=== PATIENT | male | born 2000 | race American Indian/Alaskan Native ===

== ENCOUNTER 2020-05-22 14:55 | Emergency (ER) | payer MEDICAID ==
[2020-05-22 15:12] VITALS: BP 141/95
[2020-05-22] MEDS ORDERED: IPRATROPIUM 0.02% NEBU 2.5 ML IH ONE (15:42)
[2020-05-22] MEDS ORDERED: ALBUTEROL 2.5 MG/3 ML NEBU IH ONE (15:42)
[2020-05-22] MEDS ORDERED: dexAMETHasone 20 MG/5 ML VIAL IV ONE (15:42)
--- NOTE | 2020-05-22 15:42 | Emergency Department Report ---
- General Chief Complaint: Dyspnea/Respdistress Stated Complaint: BREATHING ISSUES Time Seen by Provider: 05/22/20 15:41 Source: patient Mode of arrival: Ambulatory Limitations: No Limitations - History of Present Illness Initial Comments: Patient is a 19-year-old male who presents emergency room with complaints of a cough that began a few weeks ago. He denies any mucus production. He states he has associated chest tightness, shortness of breath, wheezing. He denies any fever, vomiting, diarrhea, sore throat, ear pain. He denies any known sick contacts or recent travel. Has a past medical history of ADHD, bipolar, anxiety, asthma. He states that he usually uses an albuterol inhaler but states that he ran out. He denies any allergies to medications. He is a current smoker. - Related Data Previous Rx's Medication Instructions Recorded Last Taken Type Albuterol Sulfate [Proventil Hfa] 6.7 gm IH TID PRN #1 hfa.aer.ad 05/22/20 Unknown Rx Prednisone [predniSONE 10 mg 10 mg PO .TAPER #1 tab.ds.pk 05/22/20 Unknown Rx (6-Day Pack, 21 Tabs)] Allergies Allergy/AdvReac Type Severity Reaction Status Date / Time pollen extracts Allergy Unknown Verified 05/22/20 15:13 ED Review of Systems ROS: Stated complaint: BREATHING ISSUES Other details as noted in HPI Comment: All other systems reviewed and negative ED Past Medical Hx - Past Medical History Previous Medical History?: Yes Hx Psychiatric Treatment: Yes Hx Asthma: Yes - Surgical History Past Surgical History?: No - Medications Home Medications: Home Medications Medication Instructions Recorded Confirmed Last Taken Type Albuterol Sulfate [Proventil Hfa] 6.7 gm IH TID PRN #1 hfa.aer.ad 05/22/20 Unknown Rx Prednisone [predniSONE 10 mg 10 mg PO .TAPER #1 tab.ds.pk 05/22/20 Unknown Rx (6-Day Pack, 21 Tabs)] ED Physical Exam - General Limitations: No Limitations General appearance: alert, in no apparent distress - Head Head exam: Present: atraumatic, normocephalic - Eye Eye exam: Present: normal appearance - ENT ENT exam: Present: mucous membranes moist - Respiratory Respiratory exam: Present: wheezes (bilateral expiratory ). Absent: respiratory distress, rales, rhonchi, stridor, chest wall tenderness, accessory muscle use, decreased breath sounds, prolonged expiratory - Cardiovascular Cardiovascular Exam: Present: regular rate, normal rhythm, normal heart sounds. Absent: systolic murmur, diastolic murmur, rubs, gallop - Neurological Exam Neurological exam: Present: alert, oriented X3 - Psychiatric Psychiatric exam: Present: normal affect, normal mood - Skin Skin exam: Present: warm, dry, intact ED Course Vital Signs 05/22/20 05/22/20 05/22/20 15:10 16:25 18:17 Temperature 98.9 F Pulse Rate 94 H 86 Pulse Rate [ 80 Throughout] Respiratory 20 18 Rate Respiratory 16 Rate [ Throughout] Blood Pressure 141/95 [Right] O2 Sat by Pulse 96 100 Oximetry ED Medical Decision Making - Lab Data Vital Signs 05/22/20 05/22/20 05/22/20 15:10 16:25 18:17 Temperature 98.9 F Pulse Rate 94 H 86 Pulse Rate [ 80 Throughout] Respiratory 20 18 Rate Respiratory 16 Rate [ Throughout] Blood Pressure 141/95 [Right] O2 Sat by Pulse 96 100 Oximetry - Radiology Data Radiology results: report reviewed Ordering Physician: CHARISSA TOTH Date of Service: 05/22/20 Procedure(s): XR chest routine 2V Accession Number(s): [id number] cc: CHARISSA TOTH Fluoro Time In Minutes: CHEST 2 VIEWS INDICATION / CLINICAL INFORMATION: cough, wheezing. COMPARISON: None available. FINDINGS: SUPPORT DEVICES: None. HEART / MEDIASTINUM: No significant abnormality. LUNGS / PLEURA: No significant pulmonary or pleural abnormality. No pneumothorax. ADDITIONAL FINDINGS: No significant additional findings. IMPRESSION: 1. No acute findings. Signer Name: Jasson Can MD Signed: 05/22/2020 5:14 PM Workstation Name: [id number] Transcribed By: ASHLEIGH Dictated By: Jasson Can MD Electronically Authenticated By: Jasson Can MD Signed Date/Time: 05/22/201713 DD/ 13 TD/TT: - Medical Decision Making Patient is a 19-year-old male who presents emergency room with complaints of a cough that began a few weeks ago. He denies any mucus production. He states he has associated chest tightness, shortness of breath, wheezing. He denies any fever, vomiting, diarrhea, sore throat, ear pain. He denies any known sick contacts or recent travel. Has a past medical history of ADHD, bipolar, anxiety, asthma. He states that he usually uses an albuterol inhaler but states that he ran out. He denies any allergies to medications. He is a current smoker. VSS. on exam: Bilateral expiratory wheezing, no respiratory distress, no accessory muscle use. CXR: 1. No acute findings. Patient given steroids IM and neb treatment and on reexamination wheezing has significantly improved and he is feeling much better and ready to go home. Patient given prescription for albuterol inhaler and prednisone. Advised patient Please take medication as prescribed. Follow-up with primary care doctor. Return to emergency room for new or worsening symptoms. Critical care attestation.: If time is entered above; I have spent that time in minutes in the direct care of this critically ill patient, excluding procedure time. ED Disposition Clinical Impression: Tobacco use Asthma exacerbation Qualifiers: Asthma severity: unspecified severity Asthma persistence: unspecified Qualified Code(s): J45.901 - Unspecified asthma with (acute) exacerbation Disposition: TO HOME OR SELFCARE Is pt being admited?: No Does the pt Need Aspirin: No Condition: Stable Instructions: Asthma, Adult, Steps to Quit Smoking Additional Instructions: Please take medication as prescribed. Follow-up with primary care doctor. Return to emergency room for new or worsening symptoms. Prescriptions: Prednisone [predniSONE 10 mg (6-Day Pack, 21 Tabs)] 10 mg PO .TAPER #1 tab.ds.pk Albuterol Sulfate [Proventil Hfa] 6.7 gm IH TID PRN #1 hfa.aer.ad PRN Reason: Wheezing Referrals: DEJAH MARROQUIN MD [Primary Care Provider] - 2-3 Days KERRI PARRA MD [Staff Physician] - 2-3 Days [facility] [Provider Group] - 2-3 Days Time of Disposition: 17:57 Print Language: PERSIAN
--- NOTE | 2020-05-22 17:19 | XRay Report ---
CHEST 2 VIEWS INDICATION / CLINICAL INFORMATION: cough, wheezing. COMPARISON: None available. FINDINGS: SUPPORT DEVICES: None. HEART / MEDIASTINUM: No significant abnormality. LUNGS / PLEURA: No significant pulmonary or pleural abnormality. No pneumothorax. ADDITIONAL FINDINGS: No significant additional findings. IMPRESSION: 1. No acute findings. Signer Name: Jasson Can MD Signed: 05/22/2020 5:14 PM Workstation Name: [id number]
== END 2020-05-22 18:17 | disposition home or self-care (01) ==
LOC: ED 14:55
DX: J45.901 Unspecified asthma with (acute) exacerbation (principal); Z72.0 Tobacco use; Z79.899 Other long term (current) drug therapy; Z88.8 Allergy status to other drugs, medicaments and biological substances
CPT/HCPCS: 71046; 94640; 96374; 99283; J1100; 94644

== ENCOUNTER 2020-12-25 11:18 | Emergency (ER) | payer MEDICAID ==
[2020-12-25 12:10] VITALS: BP 131/87
== END 2020-12-27 08:00 ==
LOC: ED 11:18
DX: J45.909 Unspecified asthma, uncomplicated (principal); Z53.21 Procedure and treatment not carried out due to patient leaving prior to being seen by health care provider

== ENCOUNTER 2021-03-21 10:42 | Emergency (ER) | payer MEDICAID ==
[2021-03-21] MEDS ORDERED: ALBUTEROL 2.5 MG/3 ML NEBU IH ONE (10:57)
[2021-03-21] MEDS ORDERED: IPRATROPIUM 0.02% NEBU 2.5 ML IH ONE (10:57)
[2021-03-21] MEDS ORDERED: predniSONE 20 MG TAB PO ONE (10:58)
[2021-03-21 11:00] VITALS: BP 125/83
--- NOTE | 2021-03-21 11:03 | Emergency Department Report ---
HPI - General Time Seen by Provider: 03/21/21 10:49 - HPI HPI: MSE 5 The patient is a 20-year-old male present with chief complaint of asthma exacerbation. The patient states he has had chest congestion and a cough for the past 3 weeks. The patient states for the past 3 weeks he is also had an exacerbation of his asthma with wheezing. Patient states he had a cough productive of clear sputum. Patient denies history of fever. Patient states he received a Covid vaccination but is unable to name which brand or how many shots he received. ED Past Medical Hx - Past Medical History Hx Psychiatric Treatment: Yes (ADHD, anxiety, depression) Hx Asthma: Yes - Surgical History Additional Surgical History: Left upper extremity surgery - Family History Family history: no significant - Social History Smoking Status: Current Every Day Smoker (2/3 pack/day) Substance Use Type: Marijuana - Medications Home Medications: Home Medications Medication Instructions Recorded Confirmed Last Taken Type Albuterol Sulfate [Proventil Hfa] 6.7 gm IH TID PRN #1 hfa.aer.ad 05/22/20 Unknown Rx Prednisone [predniSONE 10 mg 10 mg PO .TAPER #1 tab.ds.pk 05/22/20 Unknown Rx (6-Day Pack, 21 Tabs)] Albuterol Mdi (or & Nicu Only) 2 puff IH QID PRN #8.5 gram 03/21/21 Unknown Rx [ProAir HFA Inhaler] Amoxicillin/Potassium Clav 1 each PO BID #20 tablet 03/21/21 Unknown Rx [Augmentin 875-125 Tablet] Benzonatate [Tessalon Perles] 100 mg PO Q8HR #30 capsule 03/21/21 Unknown Rx Prednisone [predniSONE 10 mg 10 mg PO .TAPER #1 tab.ds.pk 03/21/21 Unknown Rx (6-Day Pack, 21 Tabs)] ED Review of Systems ROS: Stated complaint: ASTHMA Other details as noted in HPI Constitutional: denies: fever Eyes: denies: eye pain ENT: denies: throat pain Respiratory: cough, shortness of breath, wheezing Cardiovascular: denies: chest pain Endocrine: no symptoms reported Gastrointestinal: denies: abdominal pain Genitourinary: denies: dysuria Musculoskeletal: denies: back pain Neurological: denies: headache Physical Exam - Physical Exam Physical Exam: GENERAL: The patient is well-developed well-nourished male sitting on stretcher not appearing to be in acute distress. [] HEENT: Normocephalic. Atraumatic. Extraocular motions are intact. Patient has moist mucous membranes. NECK: Supple. Trachea midline CHEST/LUNGS: Wheezing anteriorly. There is no respiratory distress noted. HEART/CARDIOVASCULAR: Regular. There is no tachycardia. There is no gallop rub or murmur. ABDOMEN: Abdomen is soft, nontender. Patient has normal bowel sounds. There is no abdominal distention. SKIN: There is no rash. There is no edema. There is no diaphoresis. NEURO: The patient is awake, alert, and oriented. The patient is cooperative. The patient has no focal neurologic deficits. The patient has normal speech MUSCULOSKELETAL: There is no evidence of acute injury. ED Medical Decision Making - Lab Data Result diagrams: 03/21/21 12:41 03/21/21 12:41 Lab Results 03/21/21 03/21/21 Range/Units 12:41 12:41 WBC 4.9 (4.5-11.0) K/mm3 RBC 6.61 H (3.65-5.03) M/mm3 Hgb 14.7 (11.8-15.2) gm/dl Hct 47.5 H (35.5-45.6) % MCV 72 L (84-94) fl MCH 22 L (28-32) pg MCHC 31 L (32-34) % RDW 14.2 (13.2-15.2) % Plt Count 167 (140-440) K/mm3 Seg Neutrophils % Mailing Machine Assistant Sodium 137 (137-145) mmol/L Potassium 4.2 (3.6-5.0) mmol/L Chloride 102.4 (98-107) mmol/L Carbon Dioxide 25 (22-30) mmol/L Anion Gap 14 mmol/L BUN 8 L (9-20) mg/dL Creatinine 0.8 (0.8-1.3) mg/dL Estimated GFR > 60 ml/min BUN/Creatinine Ratio 10 % Glucose 100 (75-100) mg/dL Calcium 9.5 (8.4-10.2) mg/dL - Radiology Data Radiology results: report reviewed (Chest x-ray), image reviewed (Chest x-ray) interpreted by me: Chest x-ray-no definite focal infiltrates appreciated, no pneumothorax [facility] [address] [place] [address] XRay Report Signed Patient: MATT HINTON MR#: [id number] : 2000 Acct:[id number] Age/Sex: 20 / M ADM Date: 03/21/21 Loc: ED Attending Dr: Ordering Physician: LAUREL MEDLEY MD Date of Service: 03/21/21 Procedure(s): XR chest routine 2V Accession Number(s): [id number] cc: LAUREL MEDLEY MD Fluoro Time In Minutes: CHEST 2 VIEWS INDICATION / CLINICAL INFORMATION: Shortness of breath, cough. COMPARISON: 05/22/2020 FINDINGS: SUPPORT DEVICES: None. HEART / MEDIASTINUM: No significant abnormality. LUNGS / PLEURA: Subtle patchy opacity in the left midlung zone. No pneumothorax. ADDITIONAL FINDINGS: No significant additional findings. IMPRESSION: 1. Subtle patchy opacity in the left midlung zone concerning for pneumonia. Recommend clinical correlation. Signer Name: Socrates Howell MD Signed: 03/21/2021 11:13 AM Workstation Name: [id number] Transcribed By: DB Dictated By: SOCRATES HOWELL MD Electronically Authenticated By: SOCRATES HOWELL MD Signed Date/Time: 03/21/21 1113 DD/ 1112 TD/TT: Print Cancel - Medical Decision Making 2-minute walking SPO2 97% on room air - Differential Diagnosis Acute asthma exacerbation, bronchitis, URI, pneumonia Critical care attestation.: If time is entered above; I have spent that time in minutes in the direct care of this critically ill patient, excluding procedure time. ED Disposition Clinical Impression: Acute asthma exacerbation, Pneumonia Disposition: 01 HOME / SELF CARE / HOMELESS Is pt being admited?: No Does the pt Need Aspirin: No Condition: Stable Instructions: Asthma, Adult, Community-Acquired Pneumonia, Adult, Bacterial Pneumonia (ED) Additional Instructions: Return to the emergency department should you develop worsening symptoms, inability to tolerate food or liquids, high fever or any other concerns Prescriptions: Amoxicillin/Potassium Clav [Augmentin 875-125 Tablet] 1 each PO BID #20 tablet Prednisone [predniSONE 10 mg (6-Day Pack, 21 Tabs)] 10 mg PO .TAPER #1 tab.ds.pk Albuterol Mdi (or & Nicu Only) [ProAir HFA Inhaler] 2 puff IH QID PRN #8.5 gram PRN Reason: Shortness Of Breath Benzonatate [Tessalon Perles] 100 mg PO Q8HR #30 capsule Referrals: GIANNI ZULETA MD [Staff Physician] - 3-5 Days (Dr. Zuleta is a primary physician. Please follow-up with him for further evaluation) Time of Disposition: 13:15
--- NOTE | 2021-03-21 11:18 | XRay Report ---
CHEST 2 VIEWS INDICATION / CLINICAL INFORMATION: Shortness of breath, cough. COMPARISON: 05/22/2020 FINDINGS: SUPPORT DEVICES: None. HEART / MEDIASTINUM: No significant abnormality. LUNGS / PLEURA: Subtle patchy opacity in the left midlung zone. No pneumothorax. ADDITIONAL FINDINGS: No significant additional findings. IMPRESSION: 1. Subtle patchy opacity in the left midlung zone concerning for pneumonia. Recommend clinical correl ation. Signer Name: Socrates Howell MD Signed: 03/21/2021 11:13 AM Workstation Name: [id number]
[2021-03-21 13:00] LABS: Mean Corpuscular HGB Conc 31 % (32-34); Mean Corpuscular Volume 72 fl (84-94); Platelet Count 167 K/mm3 (140-440); Red Blood Count 6.61 M/mm3 (3.65-5.03); Red Cell Distribution Width 14.2 % (13.2-15.2)
[2021-03-21 13:02] LABS: Hematocrit 47.5 % (35.5-45.6); Hemoglobin 14.7 gm/dl (11.8-15.2)
[2021-03-21 13:11] LABS: BUN/Creatinine Ratio 10; Blood Urea Nitrogen 8 mg/dL (9-20); Calcium 9.5 mg/dL (8.4-10.2); Hemolysis Index 7
[2021-03-21 13:40] LABS: Total Cells Counted 100
[2021-03-21 13:41] LABS: Hypochromasia 1+; Large Platelets Few; Platelet Estimate Consistent w Auto
== END 2021-03-21 13:18 | disposition home or self-care (01) ==
LOC: ED 10:42
DX: J45.901 Unspecified asthma with (acute) exacerbation (principal); J18.9 Pneumonia, unspecified organism; F90.9 Attention-deficit hyperactivity disorder, unspecified type; F41.9 Anxiety disorder, unspecified; F32.9 Major depressive disorder, single episode, unspecified; Z98.890 Other specified postprocedural states; F17.290 Nicotine dependence, other tobacco product, uncomplicated
CPT/HCPCS: 36415; 71046; 80048; 85007; 85025; 87040; 94640; 99284; J7512; 94644